=== PATIENT | male | born 1970 | race Caucasian/White ===

== ENCOUNTER 2016-12-07 15:53 | Emergency (ER) | payer OTHER ==
[~2016-12-07] VITALS: Ht 172.7 cm; Wt 79.4 kg
--- NOTE | 2016-12-07 16:31 | ED ANIMAL BITE/WOUND CHECK ---
History of Present Illness General Chief Complaint: Animal/Insect Bite Stated Complaint: PT WAS BITE BY A DOG SHOULDER AND LOWER BACK Source: patient, old records Exam Limitations: no limitations Vital Signs & Intake/Output Vital Signs & Intake/Output Vital Signs Date Time Temp Pulse Resp B/P B/P Pulse O2 O2 Flow FiO2 Mean Ox Delivery Rate 12/07 1607 98.1 76 16 125/82 99 Room Air Allergies Coded Allergies: No Known Allergies (12/07/16) Reconcile Medications Amoxicillin/Potassium Clav (Augmentin 875-125 Tablet) 875 MG-125 MG TABLET 1 TAB PO BID ppx Triage Note: PT STATES THAT HE WAS BIT BY A FRIENDS DOG, DOG HAS ALL SHOTS. STATES THAT HE HAS PUNCTURE TO R SHOULDER AND JUST BITE KANDY TO R SIDE Triage Nurses Notes Reviewed? yes Onset: Abrupt Duration: hour(s): (4), constant Timing: remote history Injury Environment: neighbor's Is Injury an Animal Bite? Yes Animal Type: dog Context of Animal Attack: entered animal's domain Appearance of Animal: appeared well Animal Immunization Status: up to date Observation/Capture: animal known/obs x10 days Severity of Attack: bitten, scratched Severity: mild Severity Numbers: 3 No Modifying Factors: none Associated Symptoms: DENIES HPI: 46-year-old male presents to the ER status post sustaining a dog bite to the r shoulder and r side after his friends yoruba barrett attacked him. the pt states the dog is utd on immunizations. last tetanus is unknown. he took ibuprofen 800mg for pain earlier with improvement of pain. pain was aching, constant improved now. no other injury no modifying factors or associated symptoms otherwise. (ALESIA MUORA) Past History Travel History Traveled to [place] past 21 day No Medical History Any Pertinent Medical History? see below for history Neurological: NONE EENT: NONE Cardiovascular: NONE Respiratory: asthma Gastrointestinal: NONE Hepatic: NONE Renal: NONE Musculoskeletal: NONE Psychiatric: NONE Endocrine: NONE Blood Disorders: NONE Cancer(s): NONE EMT DISPATCHER/Reproductive: NONE Surgical History Surgical History: none Psychosocial History What is your primary language [place] Tobacco Use: Never used ETOH Use: denies use Illicit Drug Use: denies illicit drug use Family History Hx Contributory? No (ALESIA MOURA) Review of Systems Review of Systems Constitutional: Reports: see HPI. All Other Systems: Reviewed and Negative Comments Review of systems: See HPI, All other systems negative. Constitutional, no chills no fever, no malaise HEENT: no sore throat no congestion Cardiovascular: No chest pain , no palpitation Skin: no rashes, no change in skin Respiratory: No dyspnea no cough GI: No nausea no vomiting, no diarrhea, : No dysuria Muscle skeletal: No joint pain, , no back pain, no neck pain, Neurologic: No numbness no headache Psych: No stress Heme/endocrine: No bruising Immunology: No lymphadenopathy (ALESIA MOURA) Physical Exam Physical Exam General Appearance: well developed/nourished, alert, awake Comments: Well-developed well-nourished patient in no apparent distress. HEENT: Atraumatic, extraocular motion intact Neck: Supple, FROM Back: FROM Cardiovascular: Regular rate and rhythms Respiratory: No respiratory distress. Patient speaking in full complete sentences. Breath sounds clear to auscultation bilaterally: NO W/R/R Extremities: full range of motion Neuro: awake, alert, and oriented to person, place and time. There were no obvious focal neurologic abnormalities. Skin: Warm & dry; there is a 0.5 cm skin puncture kandy to the right anterior shoulder superficial abrasions noted to the right flank, no visualized or palpated foreign body, nontender no surrounding ecchymosis, the rest of the skin is atraumatic Psych: Mood affect normal, normal memory normal judgment. (ALESIA MOURA) Progress Differential Diagnosis: abscess, cellulitis Plan of Care: Wound was thoroughly irrigated with normal saline Betadine peroxide Steri-Strips and bacitracin was applied discussed the patient plan of care prescription for Augmentin provided tetanus IM ordered patient feels comfortable plan I answered all his questions cleared for discharge (ALESIA MOURA) Departure Departure Time of Disposition: 1643 Disposition: HOME OR SELF CARE Condition: Stable Clinical Impression Primary Impression: Dog bite Secondary Impressions: Skin abrasion Referrals: JOY ROONEY MD (PCP/Family) Additional Instructions: augmentin as directed for prophylaxis. keep areas clean and covered. return to the er with any concerns or signs of infection: redness, warmth swelling, discharge fever or chills this was sent to [facility] Departure Forms: Customer Survey General Discharge Information Prescriptions: Current Visit Scripts Amoxicillin/Potassium Clav (Augmentin 875-125 Tablet) 1 TAB PO BID #20 TAB (ROCHELLE LOYDALESIA) PA/[employer] Co-Sign Statement Statement: ED Attending supervision documentation- [] I saw and evaluated the patient. I have also reviewed all the pertinent lab results and diagnostic results. I agree with the findings and the plan of care as documented in the PA's/[employer]'s documentation. []X I have reviewed the ED Record and agree with the PA's/[employer]'s documentation. [] Additions or exceptions (if any) to the PAs/[employer]'s note and plan are summarized below: [] (AMANDA MORA,HESHAM Dickey)
[2016-12-07] MEDS ORDERED: AUGMENTIN 875-1 EACH PO (16:46)
== END 2016-12-07 16:48 ==
LOC: ERH 15:53
DX: S41.051A Open bite of right shoulder, initial encounter (principal); S30.811A Abrasion of abdominal wall, initial encounter; W54.0XXA Bitten by dog, initial encounter; Y93.9 Activity, unspecified; Y92.9 Unspecified place or not applicable
CPT/HCPCS: 90471; 90714